=== PATIENT | female | born 1985 | race African-American/Black ===

== ENCOUNTER 2018-08-13 09:00 | Day surgery (SDC) | payer OTHER ==
[2018-08-13 09:17] VITALS: BMI 30.5
[2018-08-13] MEDS ORDERED: PROPOFOL 20 ML ONE ×2 (09:21→09:47)
[2018-08-13] MEDS ORDERED: MIDAZOLAM HCL 2 MG/2 ML SINGLE DOSE VIAL ONE (09:21)
[2018-08-13] MEDS ORDERED: SUCCINYLCHOLINE CHLORIDE 200 MG/10 ML VIAL ONE (09:25)
[2018-08-13] MEDS ORDERED: ROCURONIUM BROMIDE 50 MG/5 ML VIAL ONE (09:25)
[2018-08-13] MEDS ORDERED: DEXAMETHASONE SOD PHOSPHATE 4 MG/1 ML VIAL ONE (09:53)
[2018-08-13] MEDS ORDERED: ONDANSETRON 4 MG/2 ML VIAL ONE ×2 (09:54→10:44)
[2018-08-13] MEDS ORDERED: KETOROLAC TROMETHAMINE 30 MG/1 ML VIAL ONE (09:54)
[2018-08-13] MEDS ORDERED: DOXYCYCLINE HYCLATE 100 MG VIAL ONE (10:05)
[2018-08-13] MEDS ORDERED: ONDANSETRON 4 MG/2 ML VIAL IVPUSH ONE (10:43)
[2018-08-13] MEDS ORDERED: ONDANSETRON 4 MG/2 ML VIAL IVPUSH PRN (11:17)
[2018-08-13] MEDS ORDERED: oxyCODONE HCL 5 MG TABLET PO PRN (11:17)
[2018-08-13] MEDS ORDERED: LACTATED RINGERS SOLUTION 1,000 ML IV SCH (11:30)
[2018-08-13 11:45] VITALS: TEMP 98.2
[2018-08-13] MEDS ORDERED: oxyCODONE HCL 5 MG TABLET ONE (11:46)
--- NOTE | 2018-08-13 12:24 | OP ---
DATE OF OPERATION: 08/13/2018 PREOPERATIVE DIAGNOSIS: Missed . POSTOPERATIVE DIAGNOSIS: Missed . SURGEON: Cain Brumfield MD CAMPAIGN MARKETING MANAGER: Dr. Steven Zarate, fellow. ANESTHESIA: General. URINE OUTPUT ON THE CASE: 100 mL. INTRAVENOUS FLUIDS: Normal saline 700. COMPLICATIONS: None. BLOOD LOSS: 100 mL. PROCEDURE FOLLOWS: The patient was taken to the operating room where she was prepped and draped in normal sterile fashion. She was placed in the dorsal lithotomy position. A pelvic exam revealed an approximately 8-week sized retroverted uterus. A speculum was placed in the patients vagina. A single-tooth tenaculum was used to grasp the cervix at the anterior portion. The cervix was then dilated in order to fit an 8-mm cannula. The 8-mm suction cannula was then placed into the cervix down to the fundus and suction was applied through a suction machine in order to evacuate the contents of the uterine cavity. This was done for a total of 3 times. After which, a sharp curettage was used to confirm that the endometrial cavity had a gritty appearance throughout. A suction catheter was used once, a final time to clear out the remaining contents of the uterus and then removed. This concluded the case. All instruments were removed from the vagina. There was excellent hemostasis at the end of the procedure, and the patient was taken to the recovery room in stable condition. This operative note was completed by Dr. Steven Zarate. CAIN BRUMFIELD M.D. [id number]
[2018-08-13 12:38] VITALS: BP 105/65; PULSE 61
--- NOTE | 2018-08-14 11:47 | PATH ---
Surgical Pathology Report Patient Name: POOJA BARTLETT Med. Rec. #: [id number] /Age/Gender: 1985 (Age: 33) / F Account: [id number] [facility] Taken: 08/13/2018 Received: 08/13/2018 Reported: 08/14/2018 Physicians: Cain Brumfield M.D. Specimen(s) Received A: PRODUCTS OF CONCEPTION B: PRODUCTS OF CONCEPTION, SENT TO [facility] FOR GENETIC STUDIES Clinical History Missed Final Diagnosis A-B. PRODUCTS OF CONCEPTION, DILATION AND CURETTAGE: IMMATURE CHORIONIC VILLI, DECIDUA, AND GESTATIONAL ENDOMETRIUM CONSISTENT WITH PRODUCTS OF CONCEPTION. CHROMOSOMAL STUDIES ARE PENDING AND WILL BE REPORTED SEPARATELY AN ADDENDUM. Electronically Signed Shahana Dennis M.D. Gross Description A. Received in formalin, labeled "products of conception" is a 5.8 x 4.0 x 0.4 cm aggregate of pink and red friable soft tissue. No tissue is identified. Shoeshiner sections are submitted in two cassettes. B. Received fresh, labeled "products of conception for chromosome analysis" is a 2 x 1.5 x 0.4 cm portion of pink and red friable tissue. The specimen is placed in RPMI and sent to [facility], [place], [place] for genetic studies. [facility]13[facility]
== END 2018-08-13 12:30 | disposition home or self-care (01) ==
LOC: FASU 09:00
PROVIDERS: ATTEND Obstetrics & Gynecology Reproductive Endocrinology
PROC: 10D17ZZ Extraction of Products of Conception, Retained, Via Natural or Artificial Opening (ICD-10-PCS; principal; 2018-08-13 10:01)
DX: O02.1 Missed abortion (principal)
CPT/HCPCS: 84703; 88305-TC; 94760

== ENCOUNTER 2019-05-07 16:44 | Emergency (ER) | payer OTHER ==
--- NOTE | 2019-05-07 16:50 | PDOC ---
History of Present Illness - General Chief Complaint: Head/Neck problem Stated Complaint: LEFT FACIAL TINGLING ON AND OFF 2 DAYS Time Seen by Provider: 05/07/19 16:49 History Source: Patient Exam Limitations: No Limitations Past History - Past Medical History Allergies/Adverse Reactions: Allergies Allergy/AdvReac Type Severity Reaction Status Date / Time No Known Allergies Allergy Verified 05/07/19 16:47 Home Medications: Ambulatory Orders Estradiol [Estrace] 1 mg PO HS 08/10/18 Estradiol/Levonorgestrel [Climara Pro Patch] 1 each TD Q2D 08/10/18 Progesterone [Progesterone in Oil] 1.5 mg IM HS 08/10/18 Anemia: No Asthma: No Cancer: No Cardiac Disorders: No CVA: No COPD: No CHF: No Dementia: No Diabetes: No GI Disorders: No Disorders: No HTN: No Hypercholesterolemia: No Liver Disease: No Seizures: No Thyroid Disease: No - Surgical History Abdominal Surgery: Yes (SEE BELOW) Appendectomy: No Cardiac Surgery: No Cholecystectomy: No Lung Surgery: No Neurologic Surgery: No Orthopedic Surgery: No - Immunization History Td Vaccination: Yes Immunization Up to Date: No - Suicide/Smoking/Psychosocial Hx Smoking Status: No Smoking History: Former smoker Have you smoked in the past 12 months: No Number of Cigarettes Smoked Daily: 0 If you are a former smoker, when did you quit?: 2017 Hx Alcohol Use: Yes (OCCAS.) Drug/Substance Use Hx: No Substance Use Type: Alcohol Hx Substance Use Treatment: No *DC/Admit/Observation/Transfer - Discharge Dispostion Condition at time of disposition: Stable - Referrals Referrals: Jerel Franco MD [Primary Care Provider] - - Patient Instructions - Post Discharge Activity
[2019-05-07 17:00] VITALS: BP 124/68; PULSE 78; TEMP 98.6; BMI 26.6
[2019-05-07] MEDS ORDERED: ACETAMINOPHEN 500 MG TABLET (FP) PO ONE (17:03)
[2019-05-07] MEDS ORDERED: METOCLOPRAMIDE HCL 10 MG TABLET (FP) PO ONE ×2 (17:03→17:12)
[2019-05-07] MEDS ORDERED: ACETAMINOPHEN 500 MG TABLET (FP) ONE (17:13)
--- NOTE | 2019-05-07 18:02 | PDOC ---
Documentation entered by Keara Bullock SCRIBE, acting as scribe for Ayesha Navarro MD. Ayesha Navarro MD: This documentation has been prepared by the Kobe mckinley Brenda, SCRIBE, under my direction and personally reviewed by me in its entirety. I confirm that the documentation accurately reflects all work, treatment, procedures, and medical decision making performed by me. History of Present Illness - General Chief Complaint: Head/Neck problem Stated Complaint: LEFT FACIAL TINGLING ON AND OFF 2 DAYS Time Seen by Provider: 05/07/19 16:49 History Source: Patient Exam Limitations: No Limitations - History of Present Illness Initial Comments: 05/07/19 17:36 The patient is a 33 year old female, with a significant PMH of endometriosis and miscarriages who presents to the emergency department with left face paresthesia and headache. The patient reports an episode of left side paresthesia accompanied by severe headache today around 2pm, where the headache feels like a thumping 6/10 pain feeling, . She notes sensitivity to light and sound during episode. The patient also reports having a similar episode on Friday(05/05/19) of a 10/10 pain feeling, lasting about 40 minutes, alleviated with aspirin. She noted that the head pain then radiated to her jaw. She also notes she was taking intramuscular shots, and ceased on Friday (). The patient denies neck pain. Denies chest pain and shortness of breath. Denies fever, chills, nausea, vomiting, diarrhea and constipation. Allergies: NKA Past surgical history: Refer to nursing notes. Social history: Social alcohol use. PCP: Dr. Kala Franco Past History - Past Medical History Allergies/Adverse Reactions: Allergies Allergy/AdvReac Type Severity Reaction Status Date / Time No Known Allergies Allergy Verified 05/07/19 16:47 Home Medications: Ambulatory Orders Estradiol [Estrace] 1 mg PO HS 08/10/18 Estradiol/Levonorgestrel [Climara Pro Patch] 1 each TD Q2D 08/10/18 Progesterone [Progesterone in Oil] 1.5 mg IM HS 08/10/18 Anemia: No Asthma: No Cancer: No Cardiac Disorders: No CVA: No COPD: No CHF: No Dementia: No Diabetes: No GI Disorders: No Disorders: No HTN: No Hypercholesterolemia: No Liver Disease: No Seizures: No Thyroid Disease: No - Surgical History Abdominal Surgery: Yes (SEE BELOW) Appendectomy: No Cardiac Surgery: No Cholecystectomy: No Lung Surgery: No Neurologic Surgery: No Orthopedic Surgery: No - Immunization History Td Vaccination: Yes Immunization Up to Date: No - Suicide/Smoking/Psychosocial Hx Smoking Status: No Smoking History: Never smoked Have you smoked in the past 12 months: No Number of Cigarettes Smoked Daily: 0 If you are a former smoker, when did you quit?: 2017 Information on smoking cessation initiated: No Hx Alcohol Use: Yes (SOCIAL) Drug/Substance Use Hx: No Substance Use Type: Alcohol Hx Substance Use Treatment: No Review of Systems - Review of Systems Able to Perform ROS?: Yes Comments:: 05/07/19 17:35 GENERAL/CONSTITUTIONAL: + Paresthesia in left face. No: fever, chills, weakness , loss of appetite. HEAD, EYES, EARS, NOSE AND THROAT: No: change in vision, ear pain, discharge, sore throat, throat swelling. CARDIOVASCULAR: +Headache +palpitations. No: chest pain, syncope RESPIRATORY: No: cough, shortness of breath, wheezing, hemoptysis, stridor. GASTROINTESTINAL: + Abdominal Pain. No: nausea, vomiting, diarrhea, rectal bleeding, constipation. GENITOURINARY: No: dysuria, hematuria, frequency, urgency, flank pain. MUSCULOSKELETAL: No: back pain, neck pain, joint pain, muscle swelling or pain SKIN AND BREASTS: No: lesions, pallor, rash or easy bruising. NEUROLOGIC: No: headache, vertigo, paresthesias, weakness ENDOCRINE: No: unexplained weight gain or loss HEMATOLOGIC/LYMPHATIC: No: anemia, easy bleeding, swelling nodes. *Physical Exam - Vital Signs Last Vital Signs Temp Pulse Resp BP Pulse Ox 98.6 F 78 16 124/68 100 05/07/19 16:46 05/07/19 16:46 05/07/19 16:46 05/07/19 16:46 05/07/19 16:46 - Physical Exam Comments: 05/07/19 17:36 GENERAL: The patient is in no acute distress. HEAD: Normal with no signs of trauma. EYES: PERRLA, EOMI, sclera anicteric, conjunctiva clear. ENT: Ears normal, nares patent, oropharynx clear without exudates. Moist mucous membranes. NECK: Normal range of motion, supple without lymphadenopathy, JVD, or masses. LUNGS: Breath sounds equal, clear to auscultation bilaterally. No wheezes, and no crackles. HEART:Regular rate and rhythm, normal S1 and S2 without murmur, rub or gallop. ABDOMEN: Soft, nontender, normoactive bowel sounds. No guarding, no rebound. No masses palpable. EXTREMITIES: Normal range of motion, no edema. No clubbing or cyanosis. No erythema, or tenderness. NEUROLOGICAL: Cranial nerves II through XII grossly intact. Normal speech. No focal neurological deficits. MUSCULOSKELETAL: Back nontender to palpation, no CVA tenderness SKIN: Warm, Dry, normal turgor, no rashes or lesions noted. ED Treatment Course - RADIOLOGY Radiology Studies Ordered: Category Date Time Status HEAD CT WITHOUT CONTRAST [CT] Stat CT Scan 05/07/19 17:03 Ordered - Medications Given in the ED: ED Medications Discontinued Medications Generic Name Dose Route Start Last Admin Trade Name Freq PRN Reason Stop Dose Admin Acetaminophen 1,000 mg 05/07/19 17:03 05/07/19 17:21 Tylenol - PO 05/07/19 17:04 1,000 mg ONCE ONE Administration Metoclopramide HCl 10 mg 05/07/19 17:03 05/07/19 17:21 Reglan - PO 05/07/19 17:04 10 mg ONCE ONE Administration Medical Decision Making - Medical Decision Making 05/07/19 17:53 Ms Garcia is a 33 yo F who presents to the ER with a complaint of left sided headache Pt reports that she is currently doing IVF (2nd round) Embryo emplanted April 21 Pt BHCG has not risen She was told this week that she is not (BHCG as not appropriately decreased though) Pt noted on Friday a left sided headache with associated left facial numbness /tingling These symptoms resolved within 30 minutes Today, she again had these symptoms Left sided headache, located in the left temporal region associated with left facial numbness and tingling No speech changes No weakness No facial droop Pt denies fevers or chills Pt also feeling anxious and depressed about miscarriage Pt On examination RRR CTA NO temporal tenderness to palpation CN in tact Visual Acquity BILATERALLY Pt given tylenol and reglan pt does NOT want a CT scan (due to radiation and her bhcg still being positive) Pt does not want an IV She would like to go home She states the more that we speak, the more anxious she becomes Pt tearful on examination Denies SI and HI Will discharge to home Pt asked to return immediately to the ER for Worsening headache, new neurological findings *DC/Admit/Observation/Transfer Diagnosis at time of Disposition: Headache Qualifiers: Headache type: unspecified Headache chronicity pattern: acute headache Intractability: not intractable Qualified Code(s): R51 - Headache - Discharge Dispostion Disposition: HOME Condition at time of disposition: Stable Decision to Admit order: No - Referrals Referrals: Jerel Franco MD [Primary Care Provider] - - Patient Instructions Printed Discharge Instructions: DI for Hormonal and Tension Headaches, DI for Migraine Additional Instructions: Ms. Garcia Thank you for coming in to the ER I am so sorry that this week has been so stressful Please take tylenol or motrin as needed for your headache Please monitor yourself for any NEW neurological findings If ANYTHING concerns you, please return IMMEDIATELY to see us in the ER Return to the emergency department immediately with ANY new, persistent or worsening symptoms. Continue any medications as previously prescribed by your physician. You should follow up with your primary doctor as soon as possible regarding today's emergency department visit. . Please make sure your doctor reviews the results of your emergency evaluation. Thank you for coming to the [facility] today for your care. It was a pleasure to see you today. Please note that your evaluation is INCOMPLETE until you follow-up with your doctor. - Post Discharge Activity
== END 2019-05-07 18:08 | disposition home or self-care (01) ==
LOC: FER 16:44
DX: R51 Headache (principal)
CPT/HCPCS: 99281-25

== ENCOUNTER 2019-08-26 18:09 | Inpatient (IN) | payer OTHER ==
[2019-08-26] MEDS ORDERED: KETOROLAC TROMETHAMINE 30 MG/1 ML VIAL IVPUSH ONE (18:38)
--- NOTE | 2019-08-26 18:39 | PDOC ---
History of Present Illness - General Chief Complaint: Abscess Boil Stated Complaint: abscess Time Seen by Provider: 08/26/19 18:36 - History of Present Illness Initial Comments: 08/28/19 21:29 Chief complaint: Pain and swelling left buttock and perirectal area HPI: Worsening and enlarging for several days. Difficulty defecating. Today developed fever and chills, fatigue, malaise. Review of systems: Denies chest pain, shortness of breath, abdominal pain, vomiting or diarrhea, urinary tract symptoms, vaginal bleeding or discharge. Past medical history: Similar abscess in the past, but otherwise no other known surgical or medical problems. No known diabetes. Social/family history reviewed and noncontributory Physical exam: Alert and oriented well-developed well-nourished mild distress due to perirectal pain and swelling Low-grade fever, otherwise vital signs normal HEENT clear Neck supple without bruit mass or nodes Chest clear CV regular without murmur rub or gallop Abdomen soft nontender without mass organomegaly Neurological intact Skin: There is a large, warm, erythematous, tense, tender perirectal abscess of the left buttock and perirectal tissues. Rectal exam was not attempted. Impression: Perirectal abscess, large, with worsening inflammation, and systemic symptoms of fever, malaise, and fatigue Plan: Admit for intravenous antibiotics, and further surgical management. Past History - Past Medical History Allergies/Adverse Reactions: Allergies Allergy/AdvReac Type Severity Reaction Status Date / Time No Known Allergies Allergy Verified 08/26/19 18:15 Home Medications: Ambulatory Orders Oxycodone HCl/Acetaminophen [Percocet 5-325 mg Tablet] 1 - 2 tab PO Q6H 3 Days # 20 tablet MDD 8tabs 08/28/19 Sennosides/Docusate Sodium [Pericolace -] 2 tablet PO HS PRN 10 Days #20 tablet 08/28/19 Anemia: No Asthma: No Cancer: No Cardiac Disorders: No CVA: No COPD: No CHF: No Dementia: No Diabetes: No GI Disorders: No Disorders: No HTN: No Hypercholesterolemia: No Liver Disease: No Seizures: No Thyroid Disease: No - Surgical History Abdominal Surgery: Yes Appendectomy: No Cardiac Surgery: No Cholecystectomy: No Lung Surgery: No Neurologic Surgery: No Orthopedic Surgery: No - Immunization History Td Vaccination: Yes Immunization Up to Date: No - Psycho Social/Smoking Cessation Hx Smoking Status: No Smoking History: Never smoked Have you smoked in the past 12 months: No Number of Cigarettes Smoked Daily: 0 If you are a former smoker, when did you quit?: 2016 Hx Alcohol Use: Yes (ocasional) Drug/Substance Use Hx: No Substance Use Type: Alcohol Hx Substance Use Treatment: No *Physical Exam - Vital Signs Last Vital Signs Temp Pulse Resp BP Pulse Ox 100.6 F H 90 18 100/59 L 100 08/26/19 18:14 08/26/19 18:14 08/26/19 18:14 08/26/19 18:14 08/26/19 18:14 ED Treatment Course - LABORATORY CBC & Chemistry Diagram: 08/28/19 09:44 08/28/19 09:44 Medical Decision Making - Medical Decision Making 08/28/19 21:33 Spoke to hospitalist. Spoke to Dr. Amaro, surgical consultation. He will see the patient in the morning for definitive management of the abscess. In the meantime, antibiotics were begun. Discharge - Discharge Information Problems reviewed: Yes Clinical Impression/Diagnosis: Perirectal abscess Condition: Stable - Admission Yes - Follow up/Referral - Patient Discharge Instructions - Post Discharge Activity
[2019-08-26] MEDS ORDERED: SODIUM CHLORIDE 1,000 ML IV SCH (18:45)
[2019-08-26] MEDS ORDERED: KETOROLAC TROMETHAMINE 30 MG/1 ML VIAL ONE (18:52)
[2019-08-26 18:59] LABS: BASO % 3.3 % (0-2.0); EOS % 0.7 % (0-4.5); HEMATOCRIT 38.4 % (32.4-45.2); HEMOGLOBIN 12.7 GM/dl (10.7-15.3); LYMPH % 16.3 % (8-40); MCHC 33.1 g/dl (32.0-36.0); MEAN CELL VOLUME 93.6 fl (80-96); MEAN PLT VOLUME 7.8 fl (7.5-11.1); MONO % 6.2 % (3.8-10.2); NEUT % 73.5 % (42.8-82.8); PLATELET COUNT 364 K/MM3 (134-434); RDW 12.9 % (11.6-15.6)
[2019-08-26 19:00] LABS: EPITHELIAL CELLS MODERATE /hpf
[2019-08-26 19:13] LABS: BILIRUBIN,TOTAL 0.3 mg/dl (0.2-1); CREATININE 0.8 mg/dl (0.55-1.3); POTASSIUM 3.4 mmol/L (3.5-5.1); TOT PROT 7.7 g/dl (6.4-8.2)
[2019-08-26] MEDS ORDERED: CEFAZOLIN 1 GM in DEXTROSE 5%-WATER - 50 ML IVPB ONE (19:22)
[2019-08-26] MEDS ORDERED: ceFAZolin SODIUM 1 GM VIAL ONE (19:51)
[2019-08-26 20:29] VITALS: BMI 27.8
--- NOTE | 2019-08-26 20:49 | HP ---
CHIEF COMPLAINT: Left buttock pain PCP: Dr. Franco IVF Specialist: Dr. Cedeño HISTORY OF PRESENT ILLNESS: 34 year-old female, , with a PMH significant for endometriosis, IVF treatments, and a perirectal abscess (March 2019). Patient presented today for evaluation of left buttock pain. About four days ago patient noticed swelling and pain in left buttock, similar to what she experienced in March 2019 when she was diagnosed with a perirectal abscess. In March patient was seen at urgent care and was prescribed Bactrim. The abscess burst on its own and there was no surgical intervention. This time, patient had some Bactrim left over and started taking 3 days ago. The pain and swelling became worse and she has been experiencing fever, decreased appetite, headache, and body aches. She saw here PCP Dr. Franco today and he referred her to the ED. 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 [employer]; ; lives in [place] Smoking: occasionally when younger Alcohol: social Drugs: no Allergies No Known Allergies Allergy (Verified 08/26/19 18:15) HOME MEDICATIONS: Home Medications Medication Instructions Recorded NK [No Known Home Medication] 08/26/19 REVIEW OF SYSTEMS CONSTITUTIONAL: +fever, malaise, loss of appetite, body aches Absent: chills, diaphoresis, weight change HEENT: Absent: rhinorrhea, nasal congestion, throat pain, throat swelling, difficulty swallowing, mouth swelling, ear pain, eye pain, visual changes CARDIOVASCULAR: Absent: chest pain, syncope, palpitations, irregular heart rate, lightheadedness , peripheral edema RESPIRATORY: Absent: cough, shortness of breath, dyspnea with exertion, orthopnea, wheezing, stridor, hemoptysis GASTROINTESTINAL: Absent: abdominal pain, abdominal distension, nausea, vomiting, diarrhea, constipation, melena, hematochezia GENITOURINARY: Absent: dysuria, frequency, urgency, hesitancy, hematuria, flank pain, genital pain MUSCULOSKELETAL: Absent: myalgia, arthralgia, joint swelling, back pain, neck pain SKIN: +pain, swelling to left buttock Absent: rash, itching, pallor HEMATOLOGIC/IMMUNOLOGIC: Absent: easy bleeding, easy bruising, lymphadenopathy, frequent infections ENDOCRINE: Absent: unexplained weight gain, unexplained weight loss, heat intolerance, cold intolerance NEUROLOGIC: Absent: headache, focal weakness or paresthesias, dizziness, unsteady gait, seizure, mental status changes, bladder or bowel incontinence PSYCHIATRIC: Absent: anxiety, depression, suicidal or homicidal ideation, hallucinations. PHYSICAL EXAMINATION Vital Signs - 24 hr 08/26/19 08/26/19 08/26/19 18:14 20:14 20:21 Temperature 100.6 F H 98.9 F 98.9 F Pulse Rate 90 76 79 Respiratory 18 18 18 Rate Blood Pressure 100/59 L 106/64 106/64 O2 Sat by Pulse 100 98 99 Oximetry (%) GENERAL: Awake, alert, and fully oriented, in mild distress secondary to pain HEAD: Normal with no signs of trauma. EYES: Pupils equal, round and reactive to light, extraocular movements intact, sclera anicteric, conjunctiva clear. No lid lag. LUNGS: Breath sounds equal, clear to auscultation bilaterally. No wheezes, and no crackles. No accessory muscle use. HEART: Regular rate and rhythm, S1 and S2 ABDOMEN: Soft, nontender, not distended MUSCULOSKELETAL: Normal range of motion at all joints. No bony deformities or tenderness. No CVA tenderness. UPPER EXTREMITIES: 2+ pulses, warm, well-perfused. No cyanosis. No clubbing. No peripheral edema. LOWER EXTREMITIES: 2+ pulses, warm, well-perfused. No calf tenderness. No peripheral edema. NEUROLOGICAL: Cranial nerves II-XII intact. Normal speech. SKIN: Swelling, erythema, warmth to left buttock immediately lateral to the intergluteal fold; exquisitely tender Laboratory Results - last 24 hr 08/26/19 08/26/19 08/26/19 18:31 18:31 18:42 WBC 11.0 H RBC 4.10 Hgb 12.7 Hct 38.4 MCV 93.6 MCH 31.0 MCHC 33.1 RDW 12.9 Plt Count 364 MPV 7.8 Absolute Neuts (auto) 8.0 Neutrophils % 73.5 Lymphocytes % 16.3 Monocytes % 6.2 Eosinophils % 0.7 Basophils % 3.3 H Sodium Potassium Chloride Carbon Dioxide Anion Gap BUN Creatinine Est GFR (CKD-EPI)AfAm Est GFR (CKD-EPI)NonAf Random Glucose Calcium Total Bilirubin AST ALT Alkaline Phosphatase Total Protein Albumin Urine Color Yellow Urine Appearance Slightly Urine pH 6.0 Urine Protein Negative Urine Glucose (UA) Negative Urine Ketones 2+ H Urine Blood 1+ H Urine Nitrite Negative Urine Bilirubin Negative Urine Urobilinogen 0.2 Ur Leukocyte Esterase Negative Urine RBC 5-10 Urine WBC 2-5 Ur Transition Epith Cell Moderate Urine Bacteria Few Urine HCG, Qual Negative 08/26/19 18:42 WBC RBC Hgb Hct MCV MCH MCHC RDW Plt Count MPV Absolute Neuts (auto) Neutrophils % Lymphocytes % Monocytes % Eosinophils % Basophils % Sodium 134 L Potassium 3.4 L Chloride 105 Carbon Dioxide 24 Anion Gap 5 L BUN 9.0 Creatinine 0.8 Est GFR (CKD-EPI)AfAm 109.93 Est GFR (CKD-EPI)NonAf 94.85 Random Glucose 89 Calcium 9.0 Total Bilirubin 0.3 AST 16 ALT 13 Alkaline Phosphatase 75 Total Protein 7.7 Albumin 4.0 Urine Color Urine Appearance Urine pH Urine Protein Urine Glucose (UA) Urine Ketones Urine Blood Urine Nitrite Urine Bilirubin Urine Urobilinogen Ur Leukocyte Esterase Urine RBC Urine WBC Ur Transition Epith Cell Urine Bacteria Urine HCG, Qual ASSESSMENT/PLAN: 34 year-old female, , with a PMH significant for endometriosis, IVF treatments, and a perirectal abscess (March 2019). Admitted for perirectal abscess and fever. Perirectal abscess Fever --T 100.6, mild leukocytosis --blood and urine cultures (NOTE: patient self-started PO Bactrim x 3 days) --start Vanc, Zosyn; ID consult placed --NS x 1L bolus now, then 125mL/hr --NPO after midnight --surgery consult in am --IV Tylenol, morphine PRN --bowel regimen Hypokalemia --replete FEN Fluids: NS@125mL/hr Electrolytes: replete as indicated Nutrition: NPO after midnight DVT prophylaxis: SCDs, oob, ambulation Dispo: continues to require inpatient care. Full code., Visit type - Emergency Visit Emergency Visit: Yes ED Registration Date: 08/26/19 Care time: The patient presented to the Emergency Department on the above date and was hospitalized for further evaluation of their emergent condition. - New Patient This patient is new to me today: Yes Date on this admission: 08/26/19 - Critical Care Critical Care patient: No
[2019-08-26] MEDS ORDERED: VANCOMYCIN 1,000 MG in DEXTROSE 5%-WATER - 250 ML IVPB SCH (21:00)
[2019-08-26] MEDS ORDERED: PIPERACILLIN/TAZOB 3.375 GM 3.375 GM in DEXTROSE 5%-WATER - 50 ML IVPB SCH ×2 (21:00→21:15)
[2019-08-26] MEDS ORDERED: SODIUM CHLORIDE 1,000 ML IV STA (21:01)
[2019-08-26] MEDS ORDERED: VANCOMYCIN 1,000 MG in DEXTROSE 5%-WATER - 250 ML IVPB ONE (21:15)
[2019-08-26] MEDS ORDERED: MORPHINE SULFATE 2 MG/ML VIAL IVPUSH PRN (21:19)
[2019-08-26] MEDS ORDERED: POTASSIUM CHLORIDE TABS 20 MEQ TABLET.ER (FP) PO ONE (21:24)
[2019-08-26] MEDS ORDERED: SENNOSIDES/DOCUSATE COMBO (SENNA PLUS) TABLET (UD) PO PRN (21:38)
[2019-08-26] MEDS ORDERED: PIPERACILLIN/TAZOBACTAM 3.375 GM VIAL IVPB ONE (22:17)
[2019-08-26] MEDS ORDERED: DEXTROSE 5%-WATER - 50 ML IVPB ONE (22:18)
[2019-08-26] MEDS: ACETAMINOPHEN 1000 MG/100 ML VIAL (NON FORMULARY) IVPB SCH (22:21)
[2019-08-26] MEDS: PIPERACILLIN/TAZOB 3.375 GM 3.375 GM in DEXTROSE 5%-WATER - 50 ML IVPB SCH (22:22)
[2019-08-26] MEDS: POLYETHYLENE GLYCOL 3350 119 GM BTL PO SCH (22:34)
[2019-08-26] MEDS: morphine CARPU-JECT 2 MG/1 ML DISP.SYRIN IVPUSH PRN (23:19)
[2019-08-27] MEDS ORDERED: PIPERACILLIN/TAZOB 3.375 GM 3.375 GM in DEXTROSE 5%-WATER - 50 ML IVPB SCH (02:00)
[2019-08-27] MEDS ORDERED: DEXTROSE 5%-WATER - 50 ML IVPB ONE ×2 (02:37→11:58)
[2019-08-27] MEDS ORDERED: PIPERACILLIN/TAZOBACTAM 3.375 GM VIAL IVPB ONE ×2 (02:37→11:58)
[2019-08-27] MEDS: PIPERACILLIN/TAZOB 3.375 GM 3.375 GM in DEXTROSE 5%-WATER - 50 ML IVPB SCH ×2 (02:41→12:08)
[2019-08-27] MEDS: ACETAMINOPHEN 1000 MG/100 ML VIAL (NON FORMULARY) IVPB SCH ×3 (02:41→16:58)
[2019-08-27 08:06] LABS: BASO % 0.2 % (0-2.0); EOS % 2.2 % (0-4.5); HEMOGLOBIN 11.7 GM/dl (10.7-15.3); LYMPH % 19.4 % (8-40); MCH 31.4 pg (25.7-33.7); MCHC 33.4 g/dl (32.0-36.0); MEAN CELL VOLUME 93.8 fl (80-96); MEAN PLT VOLUME 8.4 fl (7.5-11.1); MONO % 9.8 % (3.8-10.2); NEUT % 68.4 % (42.8-82.8); PLATELET COUNT 301 K/MM3 (134-434); RBC 3.73 M/mm3 (3.60-5.2); RDW 12.4 % (11.6-15.6); WHITE BLOOD COUNT 8.9 K/mm3 (4.0-10.8)
[2019-08-27 08:12] LABS: ALBUMIN 3.1 g/dl (3.4-5.0); BILIRUBIN,TOTAL 0.3 mg/dl (0.2-1); CALCIUM 8.1 mg/dl (8.5-10); CREATININE 0.8 mg/dl (0.55-1.3); MAGNESIUM 1.8 mg/dL (1.8-2.4); POTASSIUM 4.2 mmol/L (3.5-5.1)
[2019-08-27] MEDS ORDERED: MIDAZOLAM HCL 2 MG/2 ML SINGLE DOSE VIAL ONE ×2 (09:06→09:16)
--- NOTE | 2019-08-27 09:08 | CONSULT ---
- Consultation REQUESTING PROVIDER: Jordan Palmer MD CONSULT REQUEST: We have been asked to surgically evaluate this patient for ( specify). PCP:Piper Lugo HISTORY OF PRESENT ILLNESS:CTSP who is a 34 year-old female, , with a PMH significant for endometriosis, IVF treatments, and a perirectal abscess (March 2019) which was not surgically txed. Patient presented to the [facility] ED for evaluation of left buttock pain. which started four days ago patient noticed swelling and pain in left buttock, similar to what she experienced in March 2019 when she was diagnosed with a perirectal abscess. The abscess burst on its own and there was no surgical intervention. This time, patient had some Bactrim left over and started taking 3 days ago. The pain and swelling became worse and she has been experiencing subjective fever,and body aches. She saw here PCP Dr. Franco today and he referred her to the [facility] ED. 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 PHYSICAL EXAM: GENERAL: Awake, alert, and fully oriented, in no acute distress. HEAD: Normal with no signs of trauma. EYES: sclera anicteric, conjunctiva clear. NECK: Normal ROM, supple without lymphadenopathy, JVD, or masses. ABDOMEN: Soft, nontender, not distended, normoactive bowel sounds, no guarding, no rebound, no masses. No organomegaly. MUSCULOSKELETAL: Normal ROM at all joints. No bony deformities or tenderness. No CVA tenderness. UPPER EXTREMITIES: 2+ pulses, warm, well-perfused. No cyanosis. Cap refill <2 seconds. No peripheral edema. LOWER EXTREMITIES: 2+ pulses, warm, well-perfused. No calf tenderness. No peripheral edema. NEUROLOGICAL: Normal speech, gait not observed. PSYCH: Cooperative. Good eye contact. Appropriate mood and affect. SKIN: Warm, dry, normal turgor, no rashes or lesions noted. RECTAL: induration and ttp left medial perianal area. Vital Signs Temperature 97.6 F 08/27/19 06:00 Pulse Rate 68 08/27/19 06:00 Respiratory Rate 16 08/27/19 08:10 Blood Pressure 97/51 L 10/11/19 06:00 O2 Sat by Pulse Oximetry (%) 99 08/27/19 08:10 Lab Results WBC 8.9 K/mm3 (4.0-10.8) 08/27/19 07:00 RBC 3.73 M/mm3 (3.60-5.2) 08/27/19 07:00 Hgb 11.7 GM/dl (10.7-15.3) 08/27/19 07:00 Hct 35.0 % (32.4-45.2) 08/27/19 07:00 MCV 93.8 fl (80-96) 08/27/19 07:00 MCHC 33.4 g/dl (32.0-36.0) 08/27/19 07:00 RDW 12.4 % (11.6-15.6) 08/27/19 07:00 Plt Count 301 K/MM3 (134-434) 08/27/19 07:00 Sodium 135 mmol/L (136-145) L 08/27/19 07:00 Potassium 4.2 mmol/L (3.5-5.1) 08/27/19 07:00 Chloride 109 mmol/L (98-107) H 08/27/19 07:00 Carbon Dioxide 24 mmol/L (21-32) 08/27/19 07:00 Anion Gap 2 MMOL/L (8-16) L 08/27/19 07:00 BUN 9.0 mg/dl (7-18) 08/27/19 07:00 Creatinine 0.8 mg/dl (0.55-1.3) 08/27/19 07:00 Random Glucose 92 mg/dl (74-106) 08/27/19 07:00 Calcium 8.1 mg/dl (8.5-10) L 08/27/19 07:00 IMP: perianal/perirectal abscess; recurrent PLAN: EUA/I and D; r/b/t/a's d/w the patient and informed consent obtained; we discussed the possibility of a fistula in ano developing as a result of this didease process.. Vinicius Amaro MD FACS
[2019-08-27 09:19] LABS: EPITHELIAL CELLS FEW /hpf
--- NOTE | 2019-08-27 10:01 | OP ---
Operative Note - Note: Operative Date: 08/27/19 Pre-Operative Diagnosis: left perianal abscess Operation: EUA/I and D left ischiorectal abscess Findings: left ischiorectal abscess; no rectal mass; o/w negative. Surgeon: Vinicius Amaro Anesthesiologist/SELVAGE MACHINE OPERATOR: Abhilash Saxena Anesthesia: General Specimens Removed: C and S abscess Estimated Blood Loss (mls): 5 Drains & Tubes with Location: 1" iodoform packing
[2019-08-27] MEDS: ONDANSETRON 4 MG/2 ML VIAL IVPUSH PRN (10:05)
[2019-08-27] MEDS ORDERED: ONDANSETRON 4 MG/2 ML VIAL ONE (10:07)
[2019-08-27] MEDS ORDERED: oxyCODONE HCL 5 MG TABLET PO PRN (10:10)
[2019-08-27] MEDS ORDERED: PROMETHAZINE HCL 25 MG/1 ML VIAL IVPUSH PRN (10:10)
[2019-08-27] MEDS: SODIUM CHLORIDE 1,000 ML IV SCH (11:30)
[2019-08-27] MEDS: morphine CARPU-JECT 2 MG/1 ML DISP.SYRIN IVPUSH PRN (12:06)
[2019-08-27] MEDS: POLYETHYLENE GLYCOL 3350 119 GM BTL PO SCH ×2 (12:08→21:19)
--- NOTE | 2019-08-27 13:21 | PN ---
Physical Exam: SUBJECTIVE: Patient seen and examined at bedside. OBJECTIVE: Vital Signs Period Temp Pulse Resp BP Sys/Hawk Pulse Ox Last 24 Hr 97.6 F-100.6 F 57-90 13-26 94-115/49-89 98-100 GENERAL: The patient is awake, alert, and fully oriented, in no acute distress. LUNGS: Breath sounds equal, clear to auscultation bilaterally, no wheezes, no crackles, no accessory muscle use. HEART: Regular rate and rhythm, S1, S2 without murmur, rub or gallop. ABDOMEN: Soft, nontender, nondistended EXTREMITIES: 2+ pulses, warm, well-perfused, no edema. NEUROLOGICAL: Cranial nerves II through XII grossly intact. Normal speech, SKIN: surgical wound not visualized Laboratory Results - last 24 hr 08/26/19 08/26/19 08/26/19 18:31 18:31 18:42 WBC 11.0 H RBC 4.10 Hgb 12.7 Hct 38.4 MCV 93.6 MCH 31.0 MCHC 33.1 RDW 12.9 Plt Count 364 MPV 7.8 Absolute Neuts (auto) 8.0 Neutrophils % 73.5 Lymphocytes % 16.3 Monocytes % 6.2 Eosinophils % 0.7 Basophils % 3.3 H Sodium Potassium Chloride Carbon Dioxide Anion Gap BUN Creatinine Est GFR (CKD-EPI)AfAm Est GFR (CKD-EPI)NonAf Random Glucose Calcium Magnesium Total Bilirubin AST ALT Alkaline Phosphatase Total Protein Albumin Urine Color Yellow Urine Appearance Slightly Urine pH 6.0 Urine Protein Negative Urine Glucose (UA) Negative Urine Ketones 2+ H Urine Blood 1+ H Urine Nitrite Negative Urine Bilirubin Negative Urine Urobilinogen 0.2 Ur Leukocyte Esterase Negative Urine RBC 5-10 Urine WBC 2-5 Ur Transition Epith Cell Moderate Urine Bacteria Few Urine HCG, Qual Negative Random Vancomycin 08/26/19 08/27/19 08/27/19 18:42 07:00 07:00 WBC 8.9 RBC 3.73 Hgb 11.7 Hct 35.0 MCV 93.8 MCH 31.4 MCHC 33.4 RDW 12.4 Plt Count 301 MPV 8.4 Absolute Neuts (auto) 6.1 Neutrophils % 68.4 Lymphocytes % 19.4 Monocytes % 9.8 Eosinophils % 2.2 Basophils % 0.2 Sodium 134 L Potassium 3.4 L Chloride 105 Carbon Dioxide 24 Anion Gap 5 L BUN 9.0 Creatinine 0.8 Est GFR (CKD-EPI)AfAm 109.93 Est GFR (CKD-EPI)NonAf 94.85 Random Glucose 89 Calcium 9.0 Magnesium Total Bilirubin 0.3 AST 16 ALT 13 Alkaline Phosphatase 75 Total Protein 7.7 Albumin 4.0 Urine Color Urine Appearance Urine pH Urine Protein Urine Glucose (UA) Urine Ketones Urine Blood Urine Nitrite Urine Bilirubin Urine Urobilinogen Ur Leukocyte Esterase Urine RBC Urine WBC Ur Transition Epith Cell Urine Bacteria Urine HCG, Qual Random Vancomycin 10.0 L 08/27/19 08/27/19 07:00 08:40 WBC RBC Hgb Hct MCV MCH MCHC RDW Plt Count MPV Absolute Neuts (auto) Neutrophils % Lymphocytes % Monocytes % Eosinophils % Basophils % Sodium 135 L Potassium 4.2 Chloride 109 H Carbon Dioxide 24 Anion Gap 2 L BUN 9.0 Creatinine 0.8 Est GFR (CKD-EPI)AfAm 109.93 Est GFR (CKD-EPI)NonAf 94.85 Random Glucose 92 Calcium 8.1 L Magnesium 1.8 Total Bilirubin 0.3 AST 11 L ALT 11 L Alkaline Phosphatase 58 D Total Protein 6.0 L Albumin 3.1 L Urine Color Yellow Urine Appearance Clear Urine pH 6.0 Urine Protein Negative Urine Glucose (UA) Negative Urine Ketones Trace Urine Blood Trace-intact Urine Nitrite Negative Urine Bilirubin Negative Urine Urobilinogen 0.2 Ur Leukocyte Esterase Negative Urine RBC 0-2 Urine WBC 0-2 Ur Transition Epith Cell Few Urine Bacteria Few Urine HCG, Qual Random Vancomycin Active Medications Generic Name Dose Route Start Last Admin Trade Name Freq PRN Reason Stop Dose Admin Acetaminophen 1,000 mg 08/26/19 21:30 08/27/19 12:09 Ofirmev Injection - IVPB 08/27/19 15:31 Not Given Q6H MARIBEL Fentanyl 50 mcg 08/27/19 10:10 08/27/19 10:50 Sublimaze Injection - IVPUSH 50 mcg [id number] PRN Administration PAIN-PACU ORDER X 4 DOSES ONLY Sodium Chloride 1,000 mls @ 125 mls/hr 08/26/19 18:45 08/26/19 19:00 Normal Saline - IV 125 mls/hr ASDIR MARIBEL Administration Vancomycin HCl 1,000 mg/ 250 mls @ 166.667 mls/hr 08/26/19 21:00 Dextrose IVPB Q12H MARIBEL Protocol Piperacillin Sod/Tazobactam 50 mls @ 100 mls/hr 08/27/19 02:00 Sod 3.375 gm/ Dextrose IVPB Q8H-IV MARIBEL Protocol Morphine Sulfate 2 mg 08/26/19 22:37 08/27/19 12:06 Morphine Injection - IVPUSH 2 mg Q6H PRN Administration PAIN LEVEL 6-10 Ondansetron HCl 4 mg 08/27/19 10:10 08/27/19 10:05 Zofran Injection IVPUSH 4 mg Q6H PRN Administration NAUSEA AND/OR VOMITING Oxycodone HCl 5 mg 08/27/19 10:10 Roxicodone - PO Q4H PRN PAIN LEVEL 1-5 Oxycodone HCl 10 mg 08/27/19 10:10 Roxicodone - PO Q4H PRN PAIN LEVEL 6-10 Polyethylene Glycol 17 gm 08/26/19 22:00 08/27/19 12:08 Miralax (For Daily Use) - PO 17 gm BID MARIBEL Administration Promethazine HCl 12.5 mg 08/27/19 10:10 Phenergan Injection - IVPUSH Q6H PRN NAUSEA-FOR RESCUE AFTER 15 MIN Senna/Docusate Sodium 2 tablet 08/26/19 21:38 Pericolace - PO HS PRN CONSTIPATION ASSESSMENT/PLAN 34 year-old female, , with a PMH significant for endometriosis, IVF treatments, and a perirectal abscess (March 2019). Admitted for a left ischiorectal abscess and fever. Left ischiorectal abscess s/p I&D --POD #0 --defervesced, mild leukocytosis resolved --perioperative antibiotics complete --IV Tylenol, oxycodone PRN --bowel regimen Hypokalemia --resolved FEN Fluids: NS@75mL/hr Electrolytes: replete as indicated Nutrition: regular diet DVT prophylaxis: SCDs, oob, ambulation Dispo: continues to require inpatient care. Full code., Visit type - Emergency Visit Emergency Visit: Yes ED Registration Date: 08/26/19 Care time: The patient presented to the Emergency Department on the above date and was hospitalized for further evaluation of their emergent condition. - New Patient This patient is new to me today: No - Critical Care Critical Care patient: No
[2019-08-27] MEDS: oxyCODONE HCL 5 MG TABLET PO PRN ×2 (16:55→21:49)
[2019-08-28] MEDS: oxyCODONE HCL 5 MG TABLET PO PRN ×3 (01:52→21:38)
[2019-08-28 09:45] LABS: HEMATOCRIT 33.9 % (32.4-45.2); HEMOGLOBIN 11.4 GM/dl (10.7-15.3); MCH 31.5 pg (25.7-33.7); MCHC 33.5 g/dl (32.0-36.0); MEAN CELL VOLUME 94.1 fl (80-96); MEAN PLT VOLUME 7.3 fl (7.5-11.1); PLATELET COUNT 329 K/MM3 (134-434); RBC 3.61 M/mm3 (3.60-5.2); RDW 12.6 % (11.6-15.6); WHITE BLOOD COUNT 11.7 K/mm3 (4.0-10.8)
[2019-08-28] MEDS ORDERED: BISACODYL 5 MG TABLET.DR (FP) PO PRN (10:02)
[2019-08-28 10:20] LABS: CALCIUM 8.3 mg/dl (8.5-10); CREATININE 0.7 mg/dl (0.55-1.3); MAGNESIUM 1.6 mg/dL (1.8-2.4); POTASSIUM 3.6 mmol/L (3.5-5.1)
[2019-08-28] MEDS ORDERED: SODIUM PHOSPHATE/NA BIPHOS 133 ML ENEMA PR ONE (10:30)
[2019-08-28] MEDS: morphine CARPU-JECT 2 MG/1 ML DISP.SYRIN IVPUSH PRN ×2 (10:41→16:48)
[2019-08-28] MEDS: POLYETHYLENE GLYCOL 3350 119 GM BTL PO SCH ×2 (10:51→21:40)
--- NOTE | 2019-08-28 10:58 | OP ---
DATE OF OPERATION: 08/27/2019 PREOPERATIVE DIAGNOSIS: Left perianal abscess. POSTOPERATIVE DIAGNOSIS: Left ischiorectal abscess. PROCEDURE: Examination under anesthesia and incision and drainage of left ischiorectal abscess. SURGEON: Vinicius Amaro MD ANESTHESIA: General. OPERATIVE FINDINGS: There was an ischiorectal abscess on the left. There was no evidence of intrarectal mass or abnormality on exam under anesthesia, and the rest of the findings were unremarkable. DESCRIPTION OF PROCEDURE: Patient was placed on the operating room table in supine position. After the induction of general anesthesia, she was placed in the dorsal lithotomy position. The perineum was prepped with Betadine, draped in sterile fashion. A time-out was taken, and exam under anesthesia carried out and the previously noted findings were observed. Over the area of induration and fluctuance, and incision was made and taken down through skin and subcutaneous tissue. Purulent drainage was sent for culture and sensitivity. All loculations were broken up using blunt dissection. The cavity was irrigated with normal saline and peroxide and hemostasis secured with electrocautery and the wound packed with 1-inch iodoform gauze. Dry, sterile dressings were placed and the procedure terminated at this point and the patient transferred to the post anesthesia care unit in stable condition awake and alert. ESTIMATED BLOOD LOSS: 5 mL. REPLACEMENTS: Crystalloid. DRAINS: 1-inch iodoform packing. SPECIMEN: Culture and sensitivity of drainage to microbiology. I, Vinicius Amaro, was physically present in the operating room from the time the patient was placed on the operating room table until she was transferred to the post anesthesia care unit in [place]. Vinicius Amaro MD [id number] MTDD
--- NOTE | 2019-08-28 11:29 | PN ---
Progress Note, Physician Chief Complaint: admitted for left glutteal lakeisha-anal abscess, now s/p I and D History of Present Illness: uncontrolled perirectal pain - PRN morphine reordered no BM in 5days abx course completed pt feels unsafe to be discharged home due to persistent pain, constipation and lack of knowledge about wound care. - Current Medication List Current Medications: Active Medications Bisacodyl (Dulcolax -) 10 mg PO DAILY PRN PRN Reason: CONSTIPATION Sodium Chloride (Normal Saline -) 1,000 mls @ 75 mls/hr IV ASDIR [facility] Last Admin: 08/27/19 11:30 Dose: 75 mls/hr Morphine Sulfate (Morphine Injection -) 2 mg IVPUSH Q4H PRN PRN Reason: PAIN LEVEL 7 - 10 Last Admin: 08/28/19 10:41 Dose: 2 mg Ondansetron HCl (Zofran Injection) 4 mg IVPUSH Q6H PRN PRN Reason: NAUSEA AND/OR VOMITING Last Admin: 08/27/19 10:05 Dose: 4 mg Oxycodone HCl (Roxicodone -) 5 mg PO Q4H PRN PRN Reason: PAIN LEVEL 1-5 Oxycodone HCl (Roxicodone -) 10 mg PO Q4H PRN PRN Reason: PAIN LEVEL 6-10 Last Admin: 08/28/19 07:59 Dose: 10 mg Polyethylene Glycol (Miralax (For Daily Use) -) 17 gm PO BID [facility] Last Admin: 08/28/19 10:51 Dose: 17 gm Senna/Docusate Sodium (Pericolace -) 2 tablet PO HS PRN PRN Reason: CONSTIPATION Last Admin: 08/27/19 16:55 Dose: 2 tablet Sodium Phosphate (Fleet Adult Rectal Enema -) 133 ml ME ONCE ONE Stop: 08/28/19 10:31 Last Admin: 08/28/19 10:51 Dose: 133 ml - Objective Vital Signs: Vital Signs Temperature 98.7 F 08/28/19 07:01 Pulse Rate 67 08/28/19 07:01 Respiratory Rate 17 08/28/19 07:01 Blood Pressure 104/46 L 08/28/19 07:01 O2 Sat by Pulse Oximetry (%) 100 08/28/19 07:01 Constitutional: Yes: Well Nourished, No Distress Eyes: Yes: Conjunctiva Clear, EOM Intact, PERRL HENT: Yes: Atraumatic, Normocephalic Neck: Yes: Supple, Trachea Midline Cardiovascular: Yes: Regular Rate and Rhythm Respiratory: Yes: Regular, CTA Bilaterally Gastrointestinal: Yes: Normal Bowel Sounds, Soft ...Rectal Exam: Yes: Other (left glut: with partially soaked serosangineous dressing, + localized tenderness. no active drainge or foul odor) Musculoskeletal: Yes: WNL Extremities: Yes: WNL Edema: No Integumentary: Yes: WNL Wound/Incision: Yes: Dressing Dry and Intact (left glutteal dressing partially saturated but intact, no acutive drainage) Neurological: Yes: WNL ...Motor Strength: WNL Psychiatric: Yes: Alert, Oriented Labs: CBC, BMP 08/28/19 09:44 08/28/19 09:44 Problem List - Problems (1) Constipation by delayed colonic transit Assessment/Plan: bowel regimen intensified - add PRN bisacodyl to senna/colace/miralax - enema x 1 today - encourage oral intake of water and prune juice. Code(s): K59.01 - SLOW TRANSIT CONSTIPATION (2) Perirectal abscess Assessment/Plan: APAP, oxycodone and morphine PRN pain Surgery following pt can most likely be discharged tomorrow, she will need to be instructed on wound care and should f/u with Dr. Amaro in clinic. Code(s): K61.1 - RECTAL ABSCESS Impression/Plan Impression/Plan: FEN Nutrition: regular diet DVT prophylaxis: oob, ambulation Dispo: continues to require inpatient care. can be discharged home tomorrow. Code status: Full code., Visit type - Emergency Visit Emergency Visit: Yes ED Registration Date: 08/26/19 Care time: The patient presented to the Emergency Department on the above date and was hospitalized for further evaluation of their emergent condition. - New Patient This patient is new to me today: Yes Date on this admission: 08/28/19 - Critical Care Critical Care patient: No - Discharge Referral Referred to [facility] Med P.C.: No
[2019-08-28] MEDS: ONDANSETRON 4 MG/2 ML VIAL IVPUSH PRN (13:36)
--- NOTE | 2019-08-28 16:46 | PN ---
Progress Note (short form) - Note Progress Note: Attending Surgeon POD #1 c/o pain and no BM VSS AF buttock dressing removed; no purulent drainage; mild induration; o/w negative. IMP: doing well post op PLAN: BID sitz baths; continue as per orders. Vinicius Amaro MD FACS
[2019-08-28] MEDS: ACETAMINOPHEN 325 MG TABLET (FP) PO PRN (22:50)
[2019-08-29] MEDS: SODIUM CHLORIDE 1,000 ML IV SCH (07:20)
[2019-08-29] MEDS: oxyCODONE HCL 5 MG TABLET PO PRN ×2 (07:37→11:42)
[2019-08-29 08:33] LABS: HEMATOCRIT 32.2 % (32.4-45.2); HEMOGLOBIN 10.9 GM/dl (10.7-15.3); MCH 31.9 pg (25.7-33.7); MCHC 33.9 g/dl (32.0-36.0); MEAN CELL VOLUME 94.1 fl (80-96); MEAN PLT VOLUME 8.9 fl (7.5-11.1); PLATELET COUNT 298 K/MM3 (134-434); RBC 3.43 M/mm3 (3.60-5.2); WHITE BLOOD COUNT 8.1 K/mm3 (4.0-10.8)
[2019-08-29 08:41] LABS: CALCIUM 8.5 mg/dl (8.5-10); CREATININE 0.7 mg/dl (0.55-1.3); MAGNESIUM 1.8 mg/dL (1.8-2.4)
[2019-08-29] MEDS: POLYETHYLENE GLYCOL 3350 119 GM BTL PO SCH (09:31)
[2019-08-29 09:46] VITALS: BP 123/67; PULSE 92; TEMP 99
--- NOTE | 2019-08-29 10:22 | PN ---
Progress Note (short form) - Note Progress Note: Attending Surgeon POD#2 Feels better; doing sitz baths Last Vital Signs Temp Pulse Resp BP Pulse Ox 99.0 F 92 H 18 123/67 98 08/29/19 09:46 08/29/19 09:46 08/29/19 09:46 08/29/19 09:46 08/29/19 09:46 wound open and clean w/minimal drainage; o/w negative C/S noted IMP: improved PLAN: May be discharged to office f/u next week. Vinicius Amaro MD FACS
--- NOTE | 2019-08-29 10:38 | DS ---
Physical Exam: SUBJECTIVE: Patient seen and examined OBJECTIVE: Vital Signs Period Temp Pulse Resp BP Sys/Hawk Pulse Ox Last 24 Hr 98.1 F-100.1 F 64-92 18-18 99-123/43-67 98-100 PHYSICAL EXAM GENERAL: The patient is awake, alert, and fully oriented, in no acute distress. HEAD: Normal with no signs of trauma. EYES: PERRL, extraocular movements intact, sclera anicteric, conjunctiva clear. ENT: Ears normal, nares patent, oropharynx clear without exudates, moist mucous membranes. NECK: Trachea midline, full range of motion, supple. LUNGS: Breath sounds equal, clear to auscultation bilaterally, no wheezes, no crackles, no accessory muscle use. HEART: Regular rate and rhythm, S1, S2 without murmur, rub or gallop. ABDOMEN: Soft, nontender, nondistended, normoactive bowel sounds, no guarding, no rebound, no hepatosplenomegaly, no masses. EXTREMITIES: 2+ pulses, warm, well-perfused, no edema. NEUROLOGICAL: Cranial nerves II through XII grossly intact. Normal speech, gait not observed. PSYCH: Normal mood, normal affect. SKIN: Warm, dry, normal turgor,left gluteal,wound dry with mild dressing LABS Laboratory Results - last 24 hr 08/29/19 08/29/19 08:15 08:15 WBC 8.1 RBC 3.43 L Hgb 10.9 Hct 32.2 L MCV 94.1 MCH 31.9 MCHC 33.9 RDW 12.0 Plt Count 298 MPV 8.9 Sodium 137 Potassium 4.0 Chloride 104 Carbon Dioxide 25 Anion Gap 8 BUN 7.0 Creatinine 0.7 Est GFR (CKD-EPI)AfAm 129.19 Est GFR (CKD-EPI)NonAf 111.47 Random Glucose 74 Calcium 8.5 Magnesium 1.8 HOSPITAL COURSE: Date of Admission:08/26/19 Date of Discharge: 08/29/19 This is a 34 year-old female, , with a PMH significant for endometriosis on IVF treatments, and a perirectal abscess (March 2019). Patient presented to ER on 08/1019 for evaluation of left buttock pain. Pt reports of noticed swelling and pain in left buttock, similar to what she experienced in March 2019 when she was diagnosed with a perirectal abscess. In March patient was seen at urgent care and was prescribed Bactrim. The abscess burst on its own and there was no surgical intervention. This time, patient had some Bactrim left over and started taking 3 days ago. The pain and swelling became worse and she has been experiencing fever, decreased appetite, headache, and body aches. She saw here PCP Dr. Franco today and he referred her to the ED. ER course was notable [id number], WBC 11.0. Pt underwent EUA/I and D left ischiorectal abscess by surgery Dr. Amaro. Post -op doing well. Wound culture shoed Staph cos negative , likely contamination, pt remains afebrile, leukocytosis normalized, no abx as per Sx. Will continue on Sitz bath, pain control and out pt out surgical followup. *Constipation by delayed colonic transit: S/p enema with good effect, will resume on Senna. Minutes to complete discharge: 35 Discharge Summary Problems reviewed: Yes Reason For Visit: PERIRECTAL ABSCESS Current Active Problems Constipation by delayed colonic transit (Acute) Perirectal abscess (Acute) Condition: Stable - Instructions Diet, Activity, Other Instructions: Dr. Amaro Discharge Instructions Dear POOJA BARTLETT, Post Operative Instructions Physical activity Resume your normal everyday activity as tolerated no heavy lifting or exercise until seen by your surgeon. You may walk unlimited amounts of and climb stairs. You may resume driving the car when you feel safe and comfortable behind the wheel. Wound care Sitz baths as instructed. Diet There are no dietary restrictions. Eat healthy, high-fiber foods. Drink 6 to 8 glasses of liquid each day. This will assist in keeping your bowels are regular. Pain management You may take Tylenol or acetaminophen or Ibuprofen (for example, Motrin, Advil etc.) Any pain prescription medication ordered should be taken as prescribed for moderate to severe pain. Call Dr. Amaro for any of the following: Severe pain not relieved by medication Fever of 101 or higher Excessive bleeding or drainage on dressing Inability to urinate Call the office at [phone] for a post operative appointment in 7 - 10 days. PLEASE CALL PCP TO SCHEDULE FOLLOW UP APPOINTMENT IN 1-2 DAYS MONITOR TEMP MONITOR DRAINAGE FROM TRUDI-ANAL WOUND IF SYSTEMIC SYMPTOMS (FEVER, CHILLS, MALAISE, N/V) OCCURS PLEASE PRESENT TO ED FOR EVALUATION Referrals: Vinicius Amaro MD [Staff Physician] - 1 Week Jerel Franco MD [Primary Care Provider] - 2 Weeks (1-2 weeks ) Disposition: HOME - Home Medications Comprehensive Discharge Medication List: Ambulatory Orders Oxycodone HCl/Acetaminophen [Percocet 5-325 mg Tablet] 1 - 2 tab PO Q6H 3 Days # 20 tablet MDD 8tabs 08/28/19 Sennosides/Docusate Sodium [Pericolace -] 2 tablet PO HS PRN 10 Days #20 tablet 08/28/19 This patient is new to me today: Yes Date on this admission: 08/29/19 Emergency Visit: Yes ED Registration Date: 08/26/19 Care time: The patient presented to the Emergency Department on the above date and was hospitalized for further evaluation of their emergent condition. Critical Care patient: No - Discharge Referral Referred to [facility] Med P.C.: No
[2019-08-29] MEDS: ACETAMINOPHEN 325 MG TABLET (FP) PO PRN (14:22)
== END 2019-08-29 14:35 | disposition home or self-care (01) ==
LOC: FER 18:09 → FM/S 19:55
PROVIDERS: ADMIT Internal Medicine; ATTEND Nurse Practitioner Family
DX: K61.1 Rectal abscess (principal)
CPT/HCPCS: 36415; 80048; 80053; 81003; 81015; 83735; 84703; 85025; 85027; 87040; 87070; 87086; 87205; 94760; 99283-25; G0480; J0131; J7030

== ENCOUNTER 2023-10-01 18:03 | Emergency (ER) | payer OTHER ==
[2023-10-01 18:25] VITALS: BP 110/67; PULSE 67; RESP 18; TEMP 99.8; BMI 32.5
[2023-10-01] MEDS ORDERED: ACETAMINOPHEN 1000 MG/100 ML BAG IVPB ONE (18:25)
[2023-10-01] MEDS ORDERED: ONDANSETRON 4 MG/2 ML VIAL IVPUSH ONE (18:25)
[2023-10-01] MEDS ORDERED: SODIUM CHLORIDE 0.9% 500 ML INFUS.BAG IV ONE (18:25)
[2023-10-01] MEDS ORDERED: MAG HYDROX/AL HYDROX/SIMETH 30 ML UNIT-DOSE CUP PO ONE (18:28)
[2023-10-01] MEDS ORDERED: FAMOTIDINE 20 MG/50 ML IVPB 20 MG/50 ML MG IVPB ONE (18:28)
[2023-10-01 18:44] LABS: HEMATOCRIT 45.3 % (32.4-45.2); HEMOGLOBIN 14.8 G/dL (10.7-15.3); MCH 30.6 pg (25.7-33.7); MCHC 32.7 g/dl (32.0-36.0); MEAN CELL VOLUME 93.8 fl (80-96); MEAN PLT VOLUME 8.1 fl (7.5-11.1); RBC 4.83 10^6/uL (3.60-5.2); RDW 13.9 % (11.6-15.6); WHITE BLOOD COUNT 6.1 10^3/uL (4.0-10.8)
[2023-10-01 18:47] LABS: *STOOL FOR OCCULT BLOOD NEGATIVE (NEGATIVE)
[2023-10-01 18:58] LABS: ALBUMIN 4.6 g/dl (3.4-5.0); BILIRUBIN,TOTAL 0.4 mg/dl (0.2-1); CREATININE 0.7 mg/dl (0.6-1.3); POTASSIUM 3.8 mmol/L (3.5-5.1); TOT PROT 7.4 g/dl (6.4-8.2)
[2023-10-01 19:13] LABS: PLATELET ESTIMATE ADEQUATE
[2023-10-01 19:44] LABS: HCG,QUALITATIVE URINE Negative
[2023-10-01] MEDS ORDERED: ONDANSETRON 4 MG/2 ML VIAL IVPB ONE (21:46)
[2023-10-01] MEDS ORDERED: SODIUM CHLORIDE 1,000 ML IV STA (21:47)
[2023-10-01] MEDS ORDERED: ONDANSETRON 4 MG/2 ML VIAL ONE (21:47)
== END 2023-10-01 22:41 | disposition home or self-care (01) ==
LOC: FER 18:03
PROC: 3E033GC Introduction of Other Therapeutic Substance into Peripheral Vein, Percutaneous Approach (ICD-10-PCS; principal; 2023-10-01)
PROC: 3E033NZ Introduction of Analgesics, Hypnotics, Sedatives into Peripheral Vein, Percutaneous Approach (ICD-10-PCS; 2023-10-01)
PROC: 3E033GC Introduction of Other Therapeutic Substance into Peripheral Vein, Percutaneous Approach (ICD-10-PCS; 2023-10-01)
PROC: 3E033GC Introduction of Other Therapeutic Substance into Peripheral Vein, Percutaneous Approach (ICD-10-PCS; 2023-10-01)
PROC: 3E0337Z Introduction of Electrolytic and Water Balance Substance into Peripheral Vein, Percutaneous Approach (ICD-10-PCS; 2023-10-01)
DX: R11.2 Nausea with vomiting, unspecified (principal); R10.84 Generalized abdominal pain; K92.1 Melena; R68.83 Chills (without fever); Z20.822 Contact with and (suspected) exposure to COVID-19
CPT/HCPCS: 0241U-QW; 36415; 74177-TC; 80053; 81003; 82272; 83690; 84703; 85027; 87086; 99285-25; Q9967